=== PATIENT | male | born 1950 | race Caucasian/White ===

== ENCOUNTER → 2017-12-06 | Day surgery (SDC) | payer OTHER ==
[~2017-12-06] MED LIST: CIPROFLOXACIN 400mg IV 400 MG/200 ML BAG IV ONE; FENTANYL CITR 100 MCG/2 ML ONE; HYDROCODONE/APAP 5/325 MG TAB PO ONE; KETOROLAC 30 MG/ML INJ ONE; LIDOCAINE 2% MPF 5 ML VIAL ONE; MIDAZOLAM HCL 2 MG/2 ML INJ ONE; PROPOFOL 200 MG/20 ML VIAL IV ONE; Ringers Lactate 1,000 ML IV ONE
[2017-12-06 10:44] LABS: Absolute Lymphocytes (CBC) 1.6 K/uL (0.7-4.9); Absolute Monocytes 1.4 K/uL (0.1-1.3); Absolute Neutrophil 7.5 K/uL (1.8-8.0); Basophils % 1.2 % (0-1.3); Eosinophils % 3.9 % (0-4.4); Hematocrit 40.3 % (39.6-49.0); Lymphocytes % 14.2 % (15.3-44.8); MCH 32.9 pg (27.0-35.0); MCV 96.7 fL (80-100); MPV 8.1 fL (7.6-11.3); Monocytes % 12.9 % (3.3-12.3); RBC Red Blood Cell Count 4.17 M/uL (4.33-5.43)
--- NOTE | 2017-12-06 10:53 | RAD REPORT ---
EXAM DESCRIPTION: Radha Sosa (2 Views)12/06/2017 10:41 am CLINICAL HISTORY: Preop for assess drainage left axilla/chest mass COMPARISON: None FINDINGS: The lungs appear clear of acute infiltrate. The heart is normal size IMPRESSION: No acute abnormalities displayed
--- NOTE | 2017-12-06 12:07 | EKG ---
Test Date: 2017-12-06 Test Time: 10:48:31 Industrial Staff Nurse: FELIPE MEASUREMENT RESULTS: Intervals: Rate: 65 UT: 146 QRSD: 82 QT: 382 QTc: 397 [place]: P: 56 UT: 146 QRS: 32 T: 45 INTERPRETIVE STATEMENTS: Normal sinus rhythm Normal ECG No previous ECG available for comparison Electronically Signed On 12-06-17 12:06:48 CDT by Guy Moraes
[2017-12-06] MEDS: MEPERIDINE HCL 25 MG/0.5 ML ONE ×2 (14:00→14:07)
--- NOTE | 2017-12-07 00:54 | OP ---
Date of Procedure: 12/06/2017 Surgeon: Bebeto Victoria MD Preoperative Diagnosis: Back large infected mass with the complex abscess. Postoperative Diagnosis: Back large infected mass with the complex abscess. Procedures: Excisional biopsy of back, deep subcutaneous mass down to muscle with a debridement of n ecrotic tissue and drainage of a complex abscess 15 x 7 cm. Anesthesia: General plus local. Packing: Wet-to-dry Nu Gauze 1 inch. Anesthesia: General plus local. Specimen: Culture. Indications: This is the case of a 67-year-old patient, who comes to the office few hours ago with l arge infection of the back area, part of the shoulder and left upper arm, going into the left upper a rm area and involving some of the axilla. The patient apparently had a mass there before. He has be en trying to deal with this as an outpatient with antibiotics but it is only getting out of control. We booked him within few hours in the OR. We explained to him the need for the removal of the mass and also debridement of the necrotic tissue with drainage of an abscess with benefits, alternatives, and risks including, but not limited to infection, bleeding, damage to adjacent structures, anesthesi a complication, recurrence, OH, and even . He also understands this may not relieve his symptom s. He might need more than one surgical intervention. He understands he will require wound care. Sharita e signed a consent. The area of concern was marked by me and the patient in the holding room. Description Of Procedure: The patient was brought to the operating room, placed in supine position. Anesthesia was done without complication. The patient was placed in lateral decubitus position with proper protection. Left shoulder axillary area, arm and back were prepped and draped in a sterile f ashion. We noticed the center of this to be a large mass. We proceeded to open that area. We notic ed extensive complex abscess with multiple loculations. We have to remove the lining of this abscess all the way down to muscle. Some of the fascia of the muscle have to be removed with it, that exten ded into the left upper arm posteriorly, with the patient still have an abscess in that area, going a little bit into also the axilla. All those loculations were explored and opened. The mass was reed faviola. The abscess was drained. Necrotic tissue was removed and then the area was profusely irrigated and packed with wet-to-dry dressing Nu Gauze. The patient tolerated the procedure well. Local anes thetic was applied over the area. Hemostasis was obtained and the patient was sent to recovery in st able condition. Diagnosis: A large infected back subcutaneous mass with a complex abscess. Disposition: Home. Activity: As tolerated. No heavy lifting. We recommend this patient to have home health agency due to the complexity of the wound. Followup: Follow in my office in 1 week. The patient is taking Bactrim. We are going to switch him to Cipro and we may have to make other changes, depends on the culture. He is going to need a wet-t o-dry daily. He may take a shower with dressings off. Medications: Include Vicodin q.4 hours p.r.n. pain. JUNE/DE Voice ID: [id number] Report ID: [id number]
== END | disposition home health service (06) ==
LOC: OR 10:14
PROVIDERS: ATTEND Surgery
PROC: 0KBG0ZZ Excision of Left Trunk Muscle, Open Approach (ICD-10-PCS; principal; 2017-12-06 14:00)
DX: L02.212 Cutaneous abscess of back [any part, except buttock and flank] (principal); L72.0 Epidermal cyst; L03.114 Cellulitis of left upper limb
CPT/HCPCS: 36415; 71046; 80048; 85025; 87070; 87075; 87205; 88304; 93005; J0744; J2175; J2250; J3010

== ENCOUNTER 2020-04-29 13:00 | Inpatient (IN) | payer OTHER ==
--- NOTE | 2020-04-29 13:30 | RAD REPORT ---
EXAM DESCRIPTION: CT - Head Brain Wo Cont - 04/29/2020 1:22 pm CLINICAL HISTORY: left sided paresthesias Headache, drowsiness, paresthesias. COMPARISON: No comparisons TECHNIQUE: All CT scans are performed using dose optimization technique as appropriate and may inclu de automated exposure control or mA/KV adjustment according to patient size. FINDINGS: No intracranial hemorrhage, hydrocephalus or extra-axial fluid collection.No areas of brai n edema or evidence of midline shift. The paranasal sinuses and mastoids are clear. The calvarium is intact. IMPRESSION: No acute intracranial abnormality.
[2020-04-29 13:57] LABS: Absolute Lymphocytes (CBC) 2.4 K/uL (0.7-4.9); Hematocrit 48.8 % (39.6-49.0); Lymphocytes % 24.6 % (15.3-44.8); MPV 8.7 fL (7.6-11.3); RBC Red Blood Cell Count 5.07 M/uL (4.33-5.43)
[2020-04-29 13:58] LABS: ALT/SGPT 27 U/L (12-78); AST/SGOT 27 U/L (15-37); Albumin 4.1 g/dL (3.4-5.0); Alkaline Phosphatase 53 U/L (45-117); BUN Blood Urea Nitrogen 14 mg/dL (7-18); Bicarbonate 29 mmol/L (21-32); Bilirubin Direct < 0.1 mg/dL (0-0.2); Bilirubin Total 0.4 mg/dL (0.2-1.0); Glucose Level 103 mg/dL (74-106); Magnesium 2.7 mg/dL (1.8-2.4); NT PRO-BNP 68 pg/mL (<125); Potassium 4.3 mmol/L (3.5-5.1); Protime INR 0.97; Sodium Level 139 mmol/L (136-145); Troponin (Emerg Dept Use Only) < 0.02 ng/mL (0.0-0.045)
[2020-04-29] MEDS ORDERED: ASPIRIN 81 MG CHEWABLE TABLET ONE (14:09)
--- NOTE | 2020-04-29 14:15 | RAD REPORT ---
EXAM DESCRIPTION: RAD - Chest Single View - 04/29/2020 1:22 pm CLINICAL HISTORY: CHEST PAIN, code stroke chest film COMPARISON: November 2017 TECHNIQUE: AP portable chest image was obtained 04/29/2020 1:22 pm . FINDINGS: No focal mass or consolidation. No failure or volume overload. Mild prominence of the inte rstitial pattern matches comparison. No hilar mass or lymphadenopathy seen. Trachea is midline. Heart and vasculature are normal. No measu rable pleural effusion and no pneumothorax. No acute bony abnormality seen. No acute aortic findings suspected. IMPRESSION: No acute cardiopulmonary process. No significant change from comparison study.
--- NOTE | 2020-04-29 15:21 | RAD REPORT ---
EXAM DESCRIPTION: CT - Head angio - 04/29/2020 2:52 pm CLINICAL HISTORY: numbness, weakness TECHNIQUE: During dynamic enhancement using nonionic IV contrast, axial 1 millimeter thick images of the head were obtained. Sagittal and axial reconstruction images were generated using MIP technique and reviewed. All CT scans are performed using dose optimization technique as appropriate and may include automated exposure control or mA/KV adjustment according to patient size. FINDINGS: No aneurysm or vascular malformation identified. Major venous sinuses are patent. No stenosis, named branch occlusion, vasculitis or other significant vascular finding identifiable. IMPRESSION: Negative CT angio head examination.
--- NOTE | 2020-04-29 15:22 | RAD REPORT ---
EXAM DESCRIPTION: CT - Neck Angio - 04/29/2020 2:52 pm CLINICAL HISTORY: right sided weakness TECHNIQUE: During dynamic enhancement using nonionic IV contrast, axial 2 mm thick images of the nec k were obtained. Sagittal and axial reconstruction images were generated using MIP technique and revi ewed. All CT scans are performed using dose optimization technique as appropriate and may include automated exposure control or mA/KV adjustment according to patient size. FINDINGS: No aneurysm or vascular malformation identified. No carotid or vertebral dissection. No aortic arch or great vessel origin abnormality seen. Vertebral artery origins unremarkable as well . No stenosis, vasculitis or other significant carotid artery finding. No focal abnormality of either vertebral artery. Basilar artery is normal. IMPRESSION: Negative CT angio neck examination.
[2020-04-29] MEDS ORDERED: THIAMINE 200 MG/2 ML INJ ONE (16:06)
[2020-04-29] MEDS ORDERED: FOLIC ACID 5 MG/ML VIAL ONE (16:07)
--- NOTE | 2020-04-29 16:36 | ER ---
Nurse's Notes [facility] Name: Aristides Camarillo Age: 69 yrs Sex: Male : 1950 Arrival Date: 04/29/2020 Time: 13:04 Bed 7 Private MD: Axel Putnam Diagnosis: Cerebral infarction Presentation: 04/29 13:10 Chief complaint: Patient states: at 0700 in the shower this morning, noticed numbness, ca1 tingling and weakness on R arm and R leg. Around 0800 everything went back to normal and went shopping. At 0930, started having numbness and tingling on R arm, weakness on R leg like my R leg doesn't want to move. Noticed pt limping walking to triage. Denies walking this way before. A\T\Ox4. Slurring negative. Van negative. Coronavirus screen: Client denies travel out of the [place] in the last 14 days. At this time, the client does not indicate any symptoms associated with coronavirus-19. Ebola Screen: Patient negative for fever greater than or equal to 101.5 degrees Fahrenheit, and additional compatible Ebola Virus Disease symptoms Patient denies exposure to infectious person. Patient denies travel to an Ebola-affected area in the 21 days before illness onset. No symptoms or risks identified at this time. Risk Assessment: Do you want to hurt yourself or someone else? Patient reports no desire to harm self or others. 13:10 Method Of Arrival: Ambulatory ca1 13:10 Acuity: SOLO 2 ca1 13:35 No acute neurological deficit is noted. Pre-hospital glucose is not applicable to this em patient. Initial Sepsis Screen: Does the patient meet any 2 criteria? No. Patient's initial sepsis screen is negative. Does the patient have a suspected source of infection? No. Patient's initial sepsis screen is negative. Onset of symptoms was April 29, 2020. Triage Assessment: 19:41 The onset of the patients symptoms was April 29, 2020 at 07:00. rv 19:41 Neuro: Reports. rv Stroke Activation: Symptom onset < 3 hours Physician: Stroke Attending; Name: ; Notified At: ; Arrived At: Physician: Chief Stroke Resident; Name: ; Notified At: ; Arrived At: Physician: Stroke Resident; Name: ; Notified At: ; Arrived At: Physician: ED Attending; Name: ; Notified At: ; Arrived At: Physician: ED Resident; Name: ; Notified At: ; Arrived At: Historical: - Allergies: 13:29 No Known Allergies; ca1 - Home Meds: 13:29 None [Active]; ca1 - PMHx: 13:29 None; ca1 - PSHx: 13:29 None; ca1 - Immunization history:: Adult Immunizations up to date, Flu vaccine is up to date. - Social history:: Smoking status: Patient reports the use of cigarette tobacco products, smokes one-half pack cigarettes per day. Screenin:35 Abuse screen: Denies threats or abuse. Nutritional screening: No deficits noted. em Tuberculosis screening: No symptoms or risk factors identified. Fall Risk None identified. Assessment: 13:14 Reassessment: wheeled to CT via wheelchair. em 13:35 VAN Scoring: Arm Drift: Patients demonstrates NO arm weakness. Patient is VAN Negative. em Patient has been NPO before screening. The patient is alert, and able to follow commands. The patient does not exhibit slurred or garbled speech. The patient is not exhibiting difficulty speaking. The patient does not exhibit difficulty understanding words. The patient is able to swallow own secretions with no drooling or need for suction. Patient tolerated one teaspoon of water. No drooling, immediate coughing, gurgling, or clearing of the throat was noted. The patient tolerated 90mL of water. No drooling, immediate coughing, gurgling, or clearing of the throat was noted. The patient passed the bedside swallow screening. Oral medications may be given as ordered. Contact Physician for further diet orders. Provider notified of bedside swallow screening results: James ROBLEDO T-PA (Activase) Screening: Contraindications: Patient reports onset of signs and symptoms of stroke greater than 6 hours ago: Yes. General: Appears in no apparent distress. comfortable, Behavior is calm, cooperative, appropriate for age. Pain: Denies pain. Neuro: Level of Consciousness is awake, alert, obeys commands, Oriented to person, place, time, situation, Appropriate for age Wheel Worker are equal bilaterally Moves all extremities. Gait is steady, Speech is normal, Facial symmetry appears normal, Numbness in dorsal aspect of distal phalanx of right thumb and dorsal aspect of proximal phalanx of right thumb. Cardiovascular: Capillary refill < 3 seconds. Respiratory: Airway is patent Respiratory effort is even, unlabored, Respiratory pattern is regular, symmetrical. GI: Patient currently denies nausea, vomiting. Derm: Skin is intact, is healthy with good turgor, Skin is pink, warm \T\ dry. Musculoskeletal: Capillary refill < 3 seconds, Range of motion: intact in all extremities. 14:05 Reassessment: Patient appears in no apparent distress at this time. Patient and/or em family updated on plan of care and expected duration. Pain level reassessed. Patient is alert, oriented x 3, equal unlabored respirations, skin warm/dry/pink. 16:00 Reassessment: Dr. Putnam at bedside. em 16:06 Reassessment: Patient appears in no apparent distress at this time. Patient and/or em family updated on plan of care and expected duration. Pain level reassessed. Patient is alert, oriented x 3, equal unlabored respirations, skin warm/dry/pink. Patient states symptoms have improved. 17:10 Reassessment: Patient appears in no apparent distress at this time. Patient and/or em family updated on plan of care and expected duration. Pain level reassessed. Patient is alert, oriented x 3, equal unlabored respirations, skin warm/dry/pink. 18:00 Reassessment: Patient appears in no apparent distress at this time. Patient and/or em family updated on plan of care and expected duration. Pain level reassessed. Patient is alert, oriented x 3, equal unlabored respirations, skin warm/dry/pink. pending bed assignment. 19:38 Reassessment: received report from STEPHAN Haas. denies pain at the moment. vital signs rv stable. alert and oriented. Vital Signs: 13:28 BP 165 / 92; Pulse 85; Resp 16; Temp 98.5; Pulse Ox 98% on R/A; Weight 86.18 kg; Height iw 6 ft. 0 in. (182.88 cm); Pain 0/10; 14:30 BP 143 / 83; Pulse 81; Resp 16; Pulse Ox 97% on R/A; em 16:01 BP 186 / 96; Pulse 57; Resp 16; Pulse Ox 99% on R/A; em 17:30 BP 149 / 80; Pulse 54; Resp 16; Pulse Ox 98% on R/A; em 19:00 BP 138 / 76; Pulse 61; Resp 16; Pulse Ox 97% on R/A; rv 19:38 BP 121 / 69; Pulse 96; Resp 17; Temp 98; Pulse Ox 96% on R/A; rv 13:28 Body Mass Index 25.77 (86.18 kg, 182.88 cm) iw NIH Stroke Scale Scores: 13:12 NIHSS Score: 1 jmm 13:35 NIHSS Score: 1 em ED Course: 13:04 Patient arrived in ED. ag5 13:07 Axel Putnam MD is Private Physician. ag5 13:11 James Bradley [facility] is [facility]. m 13:11 Charan Hill MD is Attending Physician. m 13:13 Waldo Montez, RN is Primary Nurse. em 13:22 XRAY Chest (1 view) In Process Unspecified. EDMS 13:23 CT Head Brain wo Cont In Process Unspecified. EDMS 13:29 Triage completed. ca1 13:29 Arm band placed on right wrist. ca1 13:35 Patient has correct armband on for positive identification. Placed in gown. Bed in low em position. Call light in reach. Side rails up X2. commissioning editor on. Pulse ox on. NIBP on. 13:40 Inserted saline lock: 20 gauge in left antecubital area, using aseptic technique. em 14:10 initiated transfer to [facility]. bd 14:10 EKG done, by ED staff, reviewed by James BERNSTEIN. em1 14:[address] In Process Unspecified. EDMS 14:53 CT Neck Angio In Process Unspecified. EDMS 15:32 transfer cancelled by James Bradley, pt will be admitted to [facility]. bd 16:35 Axel Putnam MD is Hospitalizing Provider. jmm 19:40 No provider procedures requiring assistance completed. IV is patent, with fluids rv infusing freely, Patient admitted, IV remains in place. Administered Medications: 13:57 Drug: Aspirin Chewable Tablet 324 mg Route: PO; em 14:46 Follow up: Response: No adverse reaction em 16:00 Drug: foLIC Acid 1 mg Route: IVPB; Site: left antecubital; em 16:30 Follow up: Response: No adverse reaction; IV Status: Completed infusion em 16:01 Drug: Thiamine 100 mg Route: IV; Rate: calculated rate; Site: left antecubital; em 16:30 Follow up: Response: No adverse reaction; IV Status: Completed infusion em 16:30 Follow up: Response: No adverse reaction; IV Status: Completed infusion em Point of Care Testing: Blood Glucose: 14:01 Blood Glucose: 111 mg/dL; em Ranges: Outcome: 16:36 Decision to Hospitalize by Provider. [facility] 19:40 Admitted to Med/surg accompanied by tech, room 225, Other SBAR, EKG Report called to GREG ROTHMAN 19:40 Condition: good 19:40 Instructed on the need for admit. 20:10 Patient left the ED. NIH Stroke Scale - NIH Stroke Score Date: 04/29/2020 Time: 13:12 Total Score = 1 1a. Level of Consciousness (LOC) - 0(Alert) 1b. Level of Consciousness (LOC) (Year \T\ Age) - 0(Both) 1c. LOC Commands (Open \T\ Closes Eyes/Contract Design Agent) - 0(Both) 2. Best Gaze (Lateral Gaze Paresis) - 0(Normal) 3. Visual Field Loss - 0(No visual loss) 4. Facial Palsy - 0(Normal) 5a. Left Arm: Motor (10-second hold) - 0(No drift) 5b. Right Arm: Motor (10-second hold) - 0(No drift) 6a. Left Leg: Motor (5-second hold - always test supine) - 0(No drift) 6b. Right Leg: Motor (5-second hold - always test supine) - 0(No drift) 7. Limb Ataxia (finger/nose \T\ heel/funk - test with eyes open) - 0(Absent) 8. Sensory Loss (pinprick arms/legs/face) - 1(Mild to moderate loss) 9. Best Language: Aphasia (description/naming/reading) - 0(No aphasia) 10. Dysarthria (speech clarity - read or repeat words) - 0(Normal) 11. Extinction and Inattention (visual/tactile/auditory/spatial/personal) - 0(No abnormality) Initials: wilfred NIH Stroke Scale - NIH Stroke Score Date: 04/29/2020 Time: 13:35 Total Score = 1 1a. Level of Consciousness (LOC) - 0(Alert) 1b. Level of Consciousness (LOC) (Year \T\ Age) - 0(Both) 1c. LOC Commands (Open \T\ Closes Eyes/Contract Design Agent) - 0(Both) 2. Best Gaze (Lateral Gaze Paresis) - 0(Normal) 3. Visual Field Loss - 0(No visual loss) 4. Facial Palsy - 0(Normal) 5a. Left Arm: Motor (10-second hold) - 0(No drift) 5b. Right Arm: Motor (10-second hold) - 0(No drift) 6a. Left Leg: Motor (5-second hold - always test supine) - 0(No drift) 6b. Right Leg: Motor (5-second hold - always test supine) - 0(No drift) 7. Limb Ataxia (finger/nose \T\ heel/funk - test with eyes open) - 0(Absent) 8. Sensory Loss (pinprick arms/legs/face) - 1(Mild to moderate loss) 9. Best Language: Aphasia (description/naming/reading) - 0(No aphasia) 10. Dysarthria (speech clarity - read or repeat words) - 0(Normal) 11. Extinction and Inattention (visual/tactile/auditory/spatial/personal) - 0(No abnormality) Initials: em Signatures: Dispatcher [employer] Prema Hoover Joel, PA PA jmm Munoz, Edgar, RN Brittany Dick RN RN iw Aristides Victoria em1 Jaleel Bales RN RN Drea Mesa RN RN [facility] Deisi Mar ag5 Corrections: (The following items were deleted from the chart) 13:30 13:28 Pulse 85bpm; Resp 16bpm; Pulse Ox 98% RA; Temp 98.5F; 86.18 kg; Height 6 iw ft. 0 in.; BMI: 25.7; Pain 0/10; iw
--- NOTE | 2020-04-29 16:36 | EDPHYS ---
Physician Documentation [facility] Name: Aristides Camarillo Age: 69 yrs Sex: Male : 1950 Arrival Date: 04/29/2020 Time: 13:04 Bed 7 Private MD: Axel Putnam ED Physician Charan Hill HPI: 04/29 13:12 This 69 yrs old Male presents to ER via Ambulatory with complaints of jmm Numbness Of Hand, Numbness Of Arm, Weakness. 13:12 The patient's problem is reported as weakness, in the right upper extremity, in the jmm right lower extremity. Onset: The symptoms/episode began/occurred acutely, today, at 07:00. The symptoms are alleviated by nothing. The symptoms are aggravated by laying. Associated signs and symptoms: Pertinent negatives: chest pain, shortness of breath. This is a 69 year old male with no known chronic medical conditions that presents to the ED with complaints of weakness to the right side of his body beginning around 7 am this morning. Symptoms intensified up to 730 with difficulty getting his right hand to brush his teeth. Patient states he had difficulty locating his mouth. Symptoms resolved around 8 am and returned at around 930 with flucuating intensity. Patient complains of ongoing weakness to the right leg and paresthesias to the right side of his face and right forearm and right 1st finger. . Historical: - Allergies: 13:29 No Known Allergies; ca1 - Home Meds: 13:29 None [Active]; ca1 - PMHx: 13:29 None; ca1 - PSHx: 13:29 None; ca1 - Immunization history:: Adult Immunizations up to date, Flu vaccine is up to date. - Social history:: Smoking status: Patient reports the use of cigarette tobacco products, smokes one-half pack cigarettes per day. ROS: 13:12 Constitutional: Negative for fever, chills, and weight loss, Cardiovascular: Negative jmm for chest pain, palpitations, and edema, Respiratory: Negative for shortness of breath, cough, wheezing, and pleuritic chest pain. 13:12 Neuro: Positive for weakness. 13:12 All other systems are negative. Exam: 13:12 Radiologist reports: negative jmm 13:12 Constitutional: This is a well developed, well nourished patient who is awake, alert, and in no acute distress. Head/Face: atraumatic. Eyes: EOMI, no conjunctival erythema appreciated ENT: Moist Mucus Membranes Neck: Trachea midline, Supple Chest/axilla: Normal chest wall appearance and motion. Cardiovascular: Regular rate and rhythm. No edema appreciated Respiratory: Normal respirations, no respiratory distress appreciated Abdomen/GI: Non distended, soft Back: Normal ROM Skin: General appearance color normal MS/ Extremity: Moves all extremities, no obvious deformities appreciated, no edema noted to the lower extremities Neuro: Awake and alert, normal gait Psych: Behavior is normal, Mood is normal, Patient is cooperative and pleasant 13:12 Neuro: Orientation: is normal, Mentation: is normal, Memory: is normal, Cerebellar function: normal finger to nose testing, heel to funk testing is normal, Gait: ataxic. 15:02 ECG was reviewed by the Attending Physician. [facility] Vital Signs: 13:28 BP 165 / 92; Pulse 85; Resp 16; Temp 98.5; Pulse Ox 98% on R/A; Weight 86.18 kg; Height iw 6 ft. 0 in. (182.88 cm); Pain 0/10; 14:30 BP 143 / 83; Pulse 81; Resp 16; Pulse Ox 97% on R/A; em 16:01 BP 186 / 96; Pulse 57; Resp 16; Pulse Ox 99% on R/A; em 17:30 BP 149 / 80; Pulse 54; Resp 16; Pulse Ox 98% on R/A; em 19:00 BP 138 / 76; Pulse 61; Resp 16; Pulse Ox 97% on R/A; rv 19:38 BP 121 / 69; Pulse 96; Resp 17; Temp 98; Pulse Ox 96% on R/A; rv 13:28 Body Mass Index 25.77 (86.18 kg, 182.88 cm) NIH Stroke Scale Scores: 13:12 NIHSS Score: 1 [facility] 13:35 NIHSS Score: 1 em MDM: 13:25 Patient medically screened. [facility] 15:23 Data reviewed: vital signs, nurses notes. ED course: I discussed the patient with Dr. wilfred Herrera whom recommended CTA head and neck and to consult him with abnormal findings. . 16:32 Counseling: I had a detailed discussion with the patient and/or guardian regarding: the [facility] historical points, exam findings, and any diagnostic results supporting the discharge/admit diagnosis, lab results, the need for further work-up and treatment in the hospital. ED course: I discussed the patient with Dr. Valadez. Whom will consult with admission. I discussed the patient with Dr. Putnam whom accepted admission. . 16:33 ED course: I discussed TPA administration with Dr. Valadez, did not recommend due to 7 jmm am onset with uncertain full resolution of symptoms. . 04/29 13:12 Order name: Basic Metabolic Panel; Complete Time: 14:01 [facility] 04/29 13:12 Order name: CBC with Diff; Complete Time: 14:01 [facility] 04/29 13:12 Order name: LFT's; Complete Time: 14:01 [facility] 04/29 13:12 Order name: Magnesium; Complete Time: 14:01 [facility] 04/29 13:12 Order name: NT PRO-BNP; Complete Time: 14:01 [facility] 04/29 13:12 Order name: PT-INR; Complete Time: 14:01 [facility] 04/29 13:12 Order name: Troponin (emerg Dept Use Only); Complete Time: 14:01 [facility] 04/29 13:12 Order name: XRAY Chest (1 view); Complete Time: 14:21 [facility] 04/29 13:12 Order name: CT Head Brain wo Cont; Complete Time: 13:33 [facility] 04/29 14:01 Order name: Glucose, Ancillary Testing; Complete Time: 14:01 [facility] 04/29 14:29 Order name: Head Angio CT; Complete Time: 15:25 [facility] 04/29 14:29 Order name: CT Neck Angio; Complete Time: 15:25 [facility] 04/29 18:01 Order name: Troponin I; Complete Time: 18:16 [facility] 04/29 13:12 Order name: EKG; Complete Time: 13:12 [facility] 04/29 13:12 Order name: Cardiac monitoring; Complete Time: 13:32 [facility] 04/29 13:12 Order name: EKG - Nurse/Tech; Complete Time: 14:10 [facility] 04/29 13:12 Order name: IV Saline Lock; Complete Time: 14:01 [facility] 04/29 13:12 Order name: Labs collected and sent; Complete Time: 13:32 [facility] 04/29 13:12 Order name: O2 Per Protocol; Complete Time: 13:32 jmm 04/29 13:12 Order name: O2 Sat Monitoring; Complete Time: 13:32 jmm EC:02 Rate is 62 beats/min. Rhythm is regular. QRS [place] is Normal. AL interval is normal. QRS jmm interval is normal. QT interval is normal. No Q waves. T waves are Normal. No ST changes noted. Reviewed by me. Administered Medications: 13:57 Drug: Aspirin Chewable Tablet 324 mg Route: PO; em 14:46 Follow up: Response: No adverse reaction em 16:00 Drug: foLIC Acid 1 mg Route: IVPB; Site: left antecubital; em 16:30 Follow up: Response: No adverse reaction; IV Status: Completed infusion em 16:01 Drug: Thiamine 100 mg Route: IV; Rate: calculated rate; Site: left antecubital; em 16:30 Follow up: Response: No adverse reaction; IV Status: Completed infusion em 16:30 Follow up: Response: No adverse reaction; IV Status: Completed infusion em Point of Care Testing: Blood Glucose: 14:01 Blood Glucose: 111 mg/dL; em Ranges: Critical Glucose Levels:Adult <50 mg/dl or >400 mg/dl <40 mg/dl or >180 mg/dl Disposition: 04/30 07:18 Co-signature as Attending Physician, Charan Hill MD I agree with the assessment and kdr plan of care. Disposition: 04/29/20 16:36 Hospitalization ordered by Axel Putnam for Inpatient Admission. Preliminary diagnosis is Cerebral infarction. - Bed requested for Telemetry/MedSurg (Inpatient). - Status is Inpatient Admission. rv - Condition is Stable. - Problem is new. - Symptoms are unchanged. NIH Stroke Scale - NIH Stroke Score Date: 04/29/2020 Time: 13:12 Total Score = 1 1a. Level of Consciousness (LOC) - 0(Alert) 1b. Level of Consciousness (LOC) (Year \T\ Age) - 0(Both) 1c. LOC Commands (Open \T\ Closes Eyes/Matting Press Tender) - 0(Both) 2. Best Gaze (Lateral Gaze Paresis) - 0(Normal) 3. Visual Field Loss - 0(No visual loss) 4. Facial Palsy - 0(Normal) 5a. Left Arm: Motor (10-second hold) - 0(No drift) 5b. Right Arm: Motor (10-second hold) - 0(No drift) 6a. Left Leg: Motor (5-second hold - always test supine) - 0(No drift) 6b. Right Leg: Motor (5-second hold - always test supine) - 0(No drift) 7. Limb Ataxia (finger/nose \T\ heel/funk - test with eyes open) - 0(Absent) 8. Sensory Loss (pinprick arms/legs/face) - 1(Mild to moderate loss) 9. Best Language: Aphasia (description/naming/reading) - 0(No aphasia) 10. Dysarthria (speech clarity - read or repeat words) - 0(Normal) 11. Extinction and Inattention (visual/tactile/auditory/spatial/personal) - 0(No abnormality) Initials: [facility] NIH Stroke Scale - NIH Stroke Score Date: 04/29/2020 Time: 13:35 Total Score = 1 1a. Level of Consciousness (LOC) - 0(Alert) 1b. Level of Consciousness (LOC) (Year \T\ Age) - 0(Both) 1c. LOC Commands (Open \T\ Closes Eyes/Matting Press Tender) - 0(Both) 2. Best Gaze (Lateral Gaze Paresis) - 0(Normal) 3. Visual Field Loss - 0(No visual loss) 4. Facial Palsy - 0(Normal) 5a. Left Arm: Motor (10-second hold) - 0(No drift) 5b. Right Arm: Motor (10-second hold) - 0(No drift) 6a. Left Leg: Motor (5-second hold - always test supine) - 0(No drift) 6b. Right Leg: Motor (5-second hold - always test supine) - 0(No drift) 7. Limb Ataxia (finger/nose \T\ heel/funk - test with eyes open) - 0(Absent) 8. Sensory Loss (pinprick arms/legs/face) - 1(Mild to moderate loss) 9. Best Language: Aphasia (description/naming/reading) - 0(No aphasia) 10. Dysarthria (speech clarity - read or repeat words) - 0(Normal) 11. Extinction and Inattention (visual/tactile/auditory/spatial/personal) - 0(No abnormality) Initials: em Signatures: Dispatcher [employer] EDMS Rebollar, Hollie, RN RN mw Charan Hill MD MD kdr Mickail, Joel, PA PA [facility] Waldo Montez, RN RN em Jaleel Bales, RN RN rv Acob, STEPHAN Shepard RN ca1 Corrections: (The following items were deleted from the chart) 04/29 19:22 16:36 Hospitalization Ordered by Axel Putnam MD for Inpatient Admission. Preliminary diagnosis is Cerebral infarction. Bed requested for Telemetry/MedSurg (Inpatient). Status is Inpatient Admission. Condition is Stable. Problem is new. Symptoms are unchanged. [facility] 20:10 19:22 04/29/2020 16:36 Hospitalization Ordered by Axel Putnam MD for Inpatient rv Admission. Preliminary diagnosis is Cerebral infarction. Bed requested for Telemetry/MedSurg (Inpatient). Status is Inpatient Admission. Condition is Stable. Problem is new. Symptoms are unchanged. mw
[2020-04-29] MEDS ORDERED: ACETAMINOPHEN 500 MG TAB PO PRN (16:40)
[2020-04-29] MEDS ORDERED: ONDANSETRON 4 MG/2 ML VIAL IV PRN (16:40)
--- NOTE | 2020-04-29 20:30 | P.HP ---
Certification for Inpatient Patient admitted to: Inpatient With expected LOS: >2 Midnights Patient will require the following post-hospital care: None Practitioner: I am a practitioner with admitting privileges, knowledge of patient current condition, hospital course, and medical plan of care. Services: Services provided to patient in accordance with Admission requirements found in Title 42 Section 412.3 of the Code of Federal Regulations Patient History Date of Service: 04/29/20 Primary Care Provider: Anupama Mclain Reason for admission: CVA History of Present Illness: Patient called to [facility] today. He woke up this morning and started experiencing numbness and weakness of his right forearm. The patient had some difficulty walking as well. felt weakness of his right leg as well. he also had decreased feelng in the right side of his face. Feeling of his ear decreased. Difficulty drinking. He went about his day. His symptoms waxed and waned. However as it was still present at around noon and he called the office The patient was directed to the ER. He had a negative CT and neurology was consulted. He had a negative CTA of the head and neck He has an elevated bp. Which he did not have before this No risk factors other than age and smoking. he smokes 1/2 ppd Allergies No Known Allergies Allergy (Unverified 12/06/17 10:18) Home Medications: Ciprofloxacin HCl [Cipro 500 MG Tablet] 500 mg PO BID #14 tab 12/06/17 Hydrocodone/Acetaminophen [Vicodin 5-325 mg Tablet] 1 each PO Q4H PRN #30 tablet 12/06/17 NaCl 0.9% Irr Bottle [Ns Irrigation Bottle] 1,000 ml IR DAILY #1 btl 12/06/17 Review of Systems 10-point ROS is otherwise unremarkable Neurological: Numbness, Incoordination Physical Examination - Physical Exam General: Alert, In no apparent distress HEENT: Atraumatic, PERRLA, Mucous membr. moist/pink, EOMI, Sclerae nonicteric Neck: Supple, 2+ carotid pulse no bruit, No LAD, Without JVD or thyroid abnormality Respiratory: Clear to auscultation bilaterally, Normal air movement Cardiovascular: Regular rate/rhythm, Normal S1 S2 Gastrointestinal: Normal bowel sounds, No tenderness Musculoskeletal: No tenderness Integumentary: No rashes Neurological: Normal speech, Normal strength at 5/5 x4 extr, Normal tone, Cranial nerves 3-12 intact, Normal reflexes 2+, Normal affect, Abnormal gait, Abnormal sensation Lymphatics: No axilla or inguinal lymphadenopathy - Studies Laboratory Data (last 24 hrs) 04/29/20 13:29: PT 11.5, INR 0.97 04/29/20 13:29: WBC 9.6, Hgb 16.7, Hct 48.8, Plt Count 284 04/29/20 13:29: Sodium 139, Potassium 4.3, BUN 14, Creatinine 0.93, Glucose 103, Magnesium 2.7 H, Total Bilirubin 0.4, AST 27, ALT 27, Alkaline Phosphatase 53 Assessment and Plan - Problems (Diagnosis) (1) TIA (transient ischemic attack) Current Visit: Yes Status: Acute Plan: Have discussed the patient with Dr. Valadez. Plan is for medical management. Will start him on asa and plavix for 3 weeks. Will then switch to plavix. STart a statin will check lipid profile in the morning. Will also get an MRI to see if there is any areas of ischemia (2) Tobacco abuse counseling Current Visit: Yes Status: Chronic Plan: Will discuss in the am. Will start him on a nicotine patch in the meantime (3) HTN (hypertension) with goal to be determined Current Visit: Yes Status: Acute Plan: Calculate to a map of 90. Will need to prefuse the brain well. Will consider an acei or arb in the am Discharge Plan: Home Plan to discharge in: 48 Hours - Advance Directives Does patient have a Living Will: No Does patient have a Durable POA for Healthcare: No - Code Status/Comfort Care Code Status Assessed: No Code Status: Full Code Physician Review: Patient Assessed, Agree with Above Assessment and Plan Critical Care: No Time Spent Managing Pts Care (In Minutes): 75
[2020-04-29 20:46] VITALS: BMI 26.2
[2020-04-29] MEDS ORDERED: ATORVASTATIN 40 MG TAB PO SCH (21:00)
[2020-04-29 22:27] VITALS: O2SAT 96
--- NOTE | 2020-04-30 06:09 | EKG ---
Test Date: 2020-04-29 Test Time: 13:59:43 Manager Residential: [facility] MEASUREMENT RESULTS: Intervals: Rate: 62 MS: 166 QRSD: 82 QT: 382 QTc: 387 [place]: P: 57 MS: 166 QRS: 62 T: 47 INTERPRETIVE STATEMENTS: Normal sinus rhythm Normal ECG Compared to ECG 12/06/2017 10:48:31 No significant changes Electronically Signed On 04-30-20 06:07:21 POLICE COMMUNICATIONS OPERATOR by Fei Cunningham
[2020-04-30 06:21] LABS: Basophils % 0.6 % (0-1.3); Lymphocytes % 26.5 % (15.3-44.8); MPV 8.7 fL (7.6-11.3); RBC Red Blood Cell Count 4.45 M/uL (4.33-5.43)
[2020-04-30 06:41] LABS: Magnesium 2.4 mg/dL (1.8-2.4); Potassium 4.2 mmol/L (3.5-5.1); Thyroid Stimulating Hormone 1.25 uIU/mL (0.360-3.740)
[2020-04-30] MEDS ORDERED: NICOTINE 14 MG/PAT TD SCH (09:00)
[2020-04-30] MEDS ORDERED: CLOPIDOGREL 75 MG TABLET PO SCH (09:00)
[2020-04-30] MEDS ORDERED: ASPIRIN EC 81 MG TAB PO SCH ×2 (09:00)
--- NOTE | 2020-04-30 11:22 | RAD REPORT ---
EXAM DESCRIPTION: MRI - MRA Head Wo Cont - 04/30/2020 10:38 am CLINICAL HISTORY: TIA, right-sided numbness and weakness COMPARISON: MRI brain same date, CT head, CTA head, CTA neck April 29 TECHNIQUE: Axial and coronal 3D [id number] image acquisition was performed. 3D rotational images were generated with source and reconstruction images reviewed. Horizontal and vertical axis rotation al views generated using MIP protocol. FINDINGS: No aneurysm or vascular malformation identified. From skullbase determination the bilatera l internal carotid arteries show no significant findings. Basilar artery and distal most vertebral ar teries show no suspicious findings. No named branch occlusion. Mild atherosclerotic changes are present in the right A1 anterior cerebral artery with no other significant atherosclerotic change in the anterior cerebral artery distribution s. The M2 and M3 branches of the bilateral middle cerebral arteries show mild atherosclerotic change. This creates mild luminal narrowing. No high-grade or flow restricting vascular lesion identifiable. No vasculitis. Posterior cerebral artery distribution show no suspicious finding. IMPRESSION: Mild atherosclerotic calcifications are seen primarily in the bilateral middle cerebral artery distributions. No vasculitis. No aneurysm or vascular malformation. No named branch occlusion identifiable.
--- NOTE | 2020-04-30 11:26 | RAD REPORT ---
EXAM DESCRIPTION: MRI - MRA Neck W/Wo Cont - 04/30/2020 10:41 am CLINICAL HISTORY: TIA, right-sided numbness and weakness COMPARISON: CTA neck April 29 TECHNIQUE: MR angiography of the cervical vasculature performed. Coronal imaging plane acquisition u tilized. A 19 MultiHance contrast volume was utilized. Coronal reformatted images were generated and reviewed. Vertical axis 3D rotational projections obtained using maximum intensity projection protoco l. FINDINGS: Aortic arch is 3 vessel configuration. Vertebral and great vessel origins show no stenosis . Imaged portions of the subclavian arteries unremarkable. Bilateral common carotid and internal snyder tid arteries show no significant atherosclerotic change. No dissection or luminal narrowing seen. Lef t vertebral artery is dominant. No dissection or significant vertebral artery finding. IMPRESSION: Negative MRA neck examination.
--- NOTE | 2020-04-30 11:39 | RAD REPORT ---
EXAM DESCRIPTION: MRI - Brain W/Wo Cont - 04/30/2020 10:41 am CLINICAL HISTORY: R/O CVA COMPARISON: MRA Head Wo Cont dated 04/30/2020 TECHNIQUE: Sagittal and axial T1-weighted images were obtained. Axial PD/heavily T2-weighted and T2- FLAIR images were obtained along with axial DWI/ADC mapping sequences. Coronal heavily T2 weighted s equence obtained. Axial and coronal post-contrast T1-weighted images were also obtained. A 19 ml Mul tihance contrast following utilized. FINDINGS: A 10 x 4 mm focus of abnormal signal on diffusion-weighted imaging seen in the posterior l imb internal capsule on the. There is corresponding diminished signal on ADC mapping. T2/IR sequences show hyperintense signal. This focal finding is not clearly seen on noncontrast T1 weighted sequence . Nonhemorrhagic infarction in this location would explain right-sided motor and sensory symptoms. No intracranial hemorrhage is present. No other area of acute/ subacute infarction. A 12 x 6 x 3 mm f ocus of hyperintense T2/IR signal is present in the right frontal lobe white matter. This extends fro m the periventricular white matter superiorly to the subcortical white matter. This is faintly hypoin tense on T1 weighted imaging. No measurable atrophy. Faint hyperintense T2/IR focus is present dragline operator olateral left frontal lobe. There is no edema or shift of midline structures. No extra-axial fluid collections. Mathews-matter/white matter junction is preserved. Signal voids are seen as a normal finding in the major intracranial v essels. Post-contrast images show no enhancement at the focus of infarction. There is no enhancement in the f rontal lobe white matter signal abnormalities. Overall, no abnormal enhancement within the brain pare nchyma. No dural thickening or enhancement. Ventricles are normal. Mastoid air cells and paranasal sinuses are clear. No globe or orbital content abnormality. No sella or supra sella findings. IMPRESSION: Acute/subacute nonhemorrhagic infarction 10 x 4 mm in size in the posterior limb interna l capsule on the left. An infarction in this location would explain right extremity motor sensory def icits. Two areas of nonenhancing T2 signal abnormality in the frontal lobes most likely areas of chronic isc hemic change. Overall no significant chronic ischemic pattern and no significant atrophy. No mass or aggressive int racranial process.
--- NOTE | 2020-04-30 16:39 | P.DS ---
Admission Date: 04/29/20 Discharge Date: 04/30/20 Primary Care Provider: Anupama Mclain Disposition: ROUTINE DISCHARGE Discharge Condition: FAIR Reason for Admission: CVA - Problems (1) TIA (transient ischemic attack) Current Visit: Yes Status: Acute (2) Tobacco abuse counseling Current Visit: Yes Status: Chronic (3) HTN (hypertension) with goal to be determined Current Visit: Yes Status: Acute Brief History of Present Illness: Patient called to [facility] today. He woke up this morning and started experiencing numbness and weakness of his right forearm. The patient had some difficulty walking as well. felt weakness of his right leg as well. he also had decreased feelng in the right side of his face. Feeling of his ear decreased. Difficulty drinking. He went about his day. His symptoms waxed and waned. However as it was still present at around noon and he called the office The patient was directed to the ER. He had a negative CT and neurology was consulted. He had a negative CTA of the head and neck He has an elevated bp. Which he did not have before this No risk factors other than age and smoking. he smokes 1/2 ppd Hospital Course: Patient came in with right sided weakness and numbness. He was found to have a stroke on MRI. Was seen by Dr. Valadez. discharged on atorvastatin, asa, lisinopril and plavix. Will have him follow up with myself and Dr. Valadez. Vital Signs/Physical Exam: Temp Pulse Resp BP Pulse Ox 97.8 F 59 20 161/74 H 97 04/30/20 12:00 04/30/20 12:00 04/30/20 12:00 04/30/20 12:00 04/30/20 12:00 General: Alert, In no apparent distress HEENT: Atraumatic, PERRLA, EOMI Neck: Supple, JVD not distended Respiratory: Clear to auscultation bilaterally, Normal air movement Cardiovascular: Regular rate/rhythm, Normal S1 S2 Gastrointestinal: Normal bowel sounds, No tenderness Musculoskeletal: No tenderness Integumentary: No rashes Neurological: Normal speech, Normal tone, Normal affect Lymphatics: No axilla or inguinal lymphadenopathy Laboratory Data at Discharge: WBC 7.7 K/uL (4.3-10.9) D 04/30/20 05:37 Hgb 14.8 g/dL (13.6-17.9) 04/30/20 05:37 Hct 42.0 % (39.6-49.0) 04/30/20 05:37 Plt Count 226 K/uL (152-406) D 04/30/20 05:37 PT 11.5 SECONDS (9.5-12.5) 04/29/20 13:29 INR 0.97 04/29/20 13:29 Sodium 139 mmol/L (136-145) 04/30/20 05:37 Potassium 4.2 mmol/L (3.5-5.1) 04/30/20 05:37 BUN 14 mg/dL (7-18) 04/30/20 05:37 Creatinine 0.87 mg/dL (0.55-1.3) 04/30/20 05:37 Glucose 104 mg/dL (74-106) 04/30/20 05:37 Magnesium Cancelled 04/30/20 06:00 Total Bilirubin 0.4 mg/dL (0.2-1.0) 04/29/20 13:29 AST 27 U/L (15-37) 04/29/20 13:29 ALT 27 U/L (12-78) 04/29/20 13:29 Alkaline Phosphatase 53 U/L (45-117) 04/29/20 13:29 Troponin I < 0.02 ng/mL (0.0-0.045) 04/29/20 21:08 Triglycerides 208 mg/dL (<150) H 04/30/20 05:37 Cholesterol 268 mg/dL (<200) H 04/30/20 05:37 HDL Cholesterol 52 mg/dL (40-60) 04/30/20 05:37 Cholesterol/HDL Ratio 5.15 04/30/20 05:37 Home Medications: Aspirin [Aspirin EC 81 MG] 81 mg PO DAILY 90 Days #90 tablet. 04/30/20 Atorvastatin Calcium 40 mg PO DAILY AFTER SUPPER 90 Days #90 tablet 04/30/20 Clopidogrel Bisulfate [Plavix*] 75 mg PO DAILY 30 Days #30 tablet 04/30/20 Clopidogrel Bisulfate [Plavix] 75 mg PO DAILY 30 Days #30 tab 04/30/20 Folic Acid 1 mg PO DAILY 90 Days #90 tablet 04/30/20 Lisinopril [Zestril] 5 mg PO DAILY 90 Days #90 tablet 04/30/20 New Medications: Aspirin [Aspirin EC 81 MG] 81 mg PO DAILY 90 Days #90 tablet. Atorvastatin Calcium 40 mg PO DAILY AFTER SUPPER 90 Days #90 tablet Folic Acid 1 mg PO DAILY 90 Days #90 tablet Clopidogrel Bisulfate [Plavix] 75 mg PO DAILY 30 Days #30 tab Clopidogrel Bisulfate [Plavix*] 75 mg PO DAILY 30 Days #30 tablet Lisinopril [Zestril] 5 mg PO DAILY 90 Days #90 tablet Diet: Regular Activity: Ad logan Followup: Axel Putnam MD [Primary Care Provider] - 1-2 Weeks Manuel Valadez MD [ASSOCIATE-ACTIVE - CAN ADMIT] - 1-2 Weeks Time spent managing pt's care (in minutes): 40
[2020-04-30 17:01] VITALS: BP 147/79; TEMP 97.2
--- NOTE | 2020-05-01 17:41 | CON ---
Reason For Consultation: Consultation called by Dr. Putnam because of stroke. History Of Present Illness: Mr. Camarillo is a 69-year-old right-handed patient with no kno wn past medical history, who developed right upper extremity numbness and weakness around 7 o'clock i n the morning on April 29, 2020. Symptoms appeared to fluctuate, but did not improve completely. He did have some problems getting his hand up towards his face to brush his teeth and had difficulty locating his mouth as he tried to do so. He thought the symptoms seemed to improve somewhat about 08 :00 a.m., and by around 09:30, the intensity began to fluctuate off and on. He also noted that the r ight forearm and face felt funny and numb. He did not arrive at [facility] until 01:04 in t he afternoon on the 29 of April. At that time, his symptoms were related to right upper extremit y weakness. NIH Stroke Scale was 1. His head CT scan done at 01:22 p.m. showed no acute intracrania l abnormalities. He was treated with aspirin and Plavix and was admitted for further neurological wo rkup to rule out stroke. His brain MRI done the following day identified an acute to subacute nonhem orrhagic infarct measuring 10 x 4 mm in the left posterior limb of the internal capsule, which is in the location explaining the patient's symptoms. There were 2 other areas that were nonenhancing on T 2 signal in the frontal lobes, likely representing chronic ischemic changes. In retrospect, the wagner ent did say that he had episodes of high blood pressure, but it was not being treated, but he denies diabetes mellitus. Also had dyslipidemia. Again, that was not being treated. His blood work did re veal on cholesterol panel, triglycerides of 208, total cholesterol 268, LDL cholesterol 174, HDL chol esterol 52, and his cholesterol to HDL ratio was elevated at 5.15. Liver function studies were jean-paul l. Glucose ranged from 103 to 111. Magnesium on admission slightly elevated to 2.7, corrected was 2 .4. His complete blood count with differential is completely normal. Coagulation panel was normal. His electrocardiogram showed normal sinus rhythm, it was a normal study. Patient denies history of fibrillation, chest pounding, or palpitations, and chest x-ray was also unremarkable. Past Medical History: Not diagnosed or treated. Surgical History: None. Medications At Home: none. Allergies: NO KNOWN DRUG ALLERGIES. Family History: Noncontributory. Social History: He smokes up to half pack cigarettes daily. Occasional alcohol use. Immunization Status: Up to date. Review of Systems: He denies any recent fevers, chills, nausea, vomiting, myalgias, arthralgias, headache, weight change , rash, psychiatric problems. He has a positive weakness as noted in the right upper and lower extre mity for that prompted him to come to [facility]. Physical Examination: Vital Signs: Blood pressure 147/79, pulse 56, respiratory rate 16, temperature 97.8, oxygen saturati on 97% on room air. Weight 193 pounds. Height is 6 feet. BMI 26.2. General: Mr. Camarillo is sitting in his bed. He is in no acute distress. HEENT: He is normocephalic, atraumatic. Sclerae are anicteric. Oropharynx is pink and moist. Neck: Supple. Chest: Clear. Heart: Regular. Extremities: Show no clubbing, cyanosis, or edema. Neurologic: He is alert and oriented to person, place, time, and situation. He has no expressive or receptive aphasias. Cranial nerves 2 through 12 are intact by examination. Motor examination in th e upper extremity, 5/5 strength proximally and distally; in the lower extremity intact in terms of st rength despite the location of the stroke, except for subtle weakness around 4/5 in the right lower e xtremity proximally and distally. Sensory exam intact in the upper and lower extremities. Reflexes symmetric in the upper and lower extremities at 2+. Coordination, he has subtle dysmetria noted in t he right lower extremity on [id number], otherwise intact. In terms of his gait, he is able to ambu late normally with good stance, stride, and arm swing; however, he has subtle difficulty with tandem gait and slight difficulty standing on his right leg only. His NIH Stroke Scale is 2, that is for hi s right lower extremity weakness and incoordination in the right lower extremity. Assessment: Mr. 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 Plan: 1.Aspirin 81 mg and Plavix 75 mg daily for 1 month, then only aspirin 81 mg daily. 2.Folic acid 1 mg daily. 3.High-dose statin. May have Lipitor 40 mg at night. 4.The patient was instructed to stop smoking cigarettes. 5.He was instructed to drink 8 glasses of water daily. 6.Instructed to exercise for 30 minutes to 1 hour, that is brisk activity, heart rate elevated, such that he is sweating but can carry a winded conversation. 7.He is instructed to decrease the intake of certain foods such as foods high in red meat and organ meat and to increase nuts, grains, fruits, vegetables. He may discharge home and follow up in Dr. Ham phan's clinic in 1 month. URSZULA/DE Voice ID: [id number] Report ID: [id number]
== END 2020-04-30 17:30 | disposition home or self-care (01) | DRG 69 ==
LOC: ER 13:00 → ERHOLD 16:39 → 2ND 19:50
PROVIDERS: ADMIT Internal Medicine; ATTEND Internal Medicine
DX: G45.9 Transient cerebral ischemic attack, unspecified (principal); G81.91 Hemiplegia, unspecified affecting right dominant side; E78.5 Hyperlipidemia, unspecified; I10 Essential (primary) hypertension; F17.210 Nicotine dependence, cigarettes, uncomplicated; R29.701 NIHSS score 1; R20.0 Anesthesia of skin; Z79.899 Other long term (current) drug therapy; Z71.6 Tobacco abuse counseling; Z79.82 Long term (current) use of aspirin; Z79.02 Long term (current) use of antithrombotics/antiplatelets; Z20.828 Contact with and (suspected) exposure to other viral communicable diseases
CPT/HCPCS: 36415; 70450; 70496; 70498; 70544; 70549; 70553; 71045; 80048; 80061; 80076; 82947; 83735; 83880; 84443; 84484; 85025; 85610; 93005; 96365; 97110; 97112; 97161; 99285; A9577; J3411; Q9967; U0002